=== PATIENT | male | born 1970 | race Caucasian/White ===

== ENCOUNTER 2020-04-14 00:42 | Outpatient (CLI) | payer BC, SELFPAY ==
[2020-04-14 21:25] LABS: SARS-CoV-2 RNA PCR Negative
== END 2020-04-14 00:43 | disposition home or self-care (01) ==
LOC: ANHCOVIDDT 00:42
PROVIDERS: PCP Family Medicine; Visit Provider Internal Medicine Gastroenterology
DX: Z01.812 Encounter for preprocedural laboratory examination (principal); Z20.828 Contact with and (suspected) exposure to other viral communicable diseases
CPT/HCPCS: 87635; C9803; U0003

== ENCOUNTER 2020-04-17 01:04 | Day surgery (SDC) | payer BC, SELFPAY ==
[2020-04-05 14:03] VITALS: BMI 25.4
[2020-04-17 10:08] VITALS: BP 149/89; PULSE 73; RESP 18; TEMP 36.9; O2SAT 100
[2020-04-17] MEDS: LACTATED RINGERS 1,000 ML 150 ML IV CONT (10:13)
--- NOTE | 2020-04-17 10:22 | PM.HPGS ---
History of Present Illness History of Present Illness Consent: Risks, benefits, and alternatives have been discussed and questions answered. Patient agrees to proceed with procedure. Chief complaint: neoplasm screening Narrative: Bry Miller is a 49 year old male here for first screening colonoscopy Review of Systems Constitutional: Constitutional: Denies headache(s) and Denies weakness Eyes: Eyes: Denies blurry vision ENT: Reports Normal hearing present, Denies headache(s) and Denies neck pain Cardiovascular: Cardiovascular: Denies chest pain and Denies dyspnea Respiratory: Respiratory: Denies dyspnea Gastrointestinal: Gastrointestinal: Reports no additional gastrointestinal complaints Genitourinary: Genitourinary: Denies dysuria Musculoskeletal: Musculoskeletal: Denies neck pain Integumentary/Breasts: Skin/Breast: Denies dry skin Neurologic: Reports Normal hearing present, Denies headache(s) and Denies weakness Psychiatric: Psychiatric: Denies anxiety Endocrine: Endocrine: Denies change in body appearance Hematologic/Lymphatic: Hematologic/Lymphatic: Denies easy bleeding Allergic/Immunologic: Allergic/Immunologic: Denies urticaria PMF Past Medical History Medical History (Updated 03/23/20 @ 09:41 by Morris Mckinney MD) Alopecia Anxiety Blood in stool BMI 26.0-26.9,adult Colon cancer screening Non-healing skin lesion Rectal bleeding Thrombocytopenia Family History Family History (System 03/23/20 @ 09:21 by Quita Girard) Mother Patient's mother is , Onset Age: 68 Father Malignant neoplasm of prostate, Onset Age: 68 Social History Social History (System 03/23/20 @ 09:21 by Quita Girard) Smoking status: Never smoker Alcohol intake: never Substance use: never Substance use type: does not use Living arrangements: with family Spiritual care concerns: No Meds Home Medications and Allergies Home Medications Medication Instructions Recorded Confirmed Type fluticasone propionate 50 1 spray NASAL BID #19.8 ml 06/23/19 04/05/20 Rx mcg/actuation nasal spray,suspension valacyclovir [Valtrex] See Rx Instructions PO DAILY PRN 04/05/20 04/05/20 History Allergies Allergy/AdvReac Type Severity Reaction Status Date / Time No Known Drug Allergies Allergy Unknown Unknown Verified 04/17/20 10:07 Vital Signs Vital Signs - 24 hr 04/17/20 10:08 Temperature 98.5 F Pulse Rate 73 Respiratory Rate 18 Blood Pressure 149/89 H Pulse Oximetry 100 Exam Const: General: comfortable and no acute distress HENMT: General nose exam: Normal nares present Eyes: General: appearance normal, both eyes and all related structures Neck: Neck: no JVD Resp: Auscultation: clear to auscultation bilaterally Cardio: Rate: regular rate Rhythm: regular rhythm GI: Inspection: non-distended GI Palp: Yes Soft to palpation Skin: General skin exam: normal color Neuro: General: gait normal Speech: normal speech Extrem: General: normal to inspection Psych: Mental Status: mental status grossly normal Assessment and Plan Assessment and plan (1) Colon cancer screening: Code(s): Z12.11 - Encounter for screening for malignant neoplasm of colon Status: Acute Assessment and Plan: will proceed with colonoscopy
--- NOTE | 2020-04-17 10:22 | WPDANESEPPF ---
Anes - Initial Pre Proc Eval Procedure: Operation Date: 04/17/20 11:30 Proposed Procedures p Screening Colonoscopy - Slava Neal MD Date/Time: 04/17/20 10:22 Surgeon: Slava Neal MD Pre Op Diagnosis: neoplasm screening Patient Data Age: 49 Gender: M Height: 6 ft Weight: 84.7 kg Last Vital Signs Temp 98.5 F 04/17/20 10:08 Pulse 73 04/17/20 10:08 Resp 18 04/17/20 10:08 BP 149/89 H 04/17/20 10:08 Pulse Ox 100 04/17/20 10:08 Allergies Allergy/AdvReac Type Severity Reaction Status Date / Time No Known Drug Allergies Allergy Unknown Unknown Verified 04/17/20 10:07 Home Medications Medication Instructions Recorded Confirmed Type fluticasone propionate 50 1 spray NASAL BID #19.8 ml 06/23/19 04/05/20 Rx mcg/actuation nasal spray,suspension valacyclovir [Valtrex] See Rx Instructions PO DAILY PRN 04/05/20 04/05/20 History Patient hx anesthesia problems: none Family hx anesthesia problems: none PMFSH Past Medical History Medical History (Updated 03/23/20 @ 09:41 by Morris Mckinney MD) Alopecia Anxiety Blood in stool BMI 26.0-26.9,adult Colon cancer screening Non-healing skin lesion Rectal bleeding Thrombocytopenia Family History Family History (System 03/23/20 @ 09:21 by Quita Girard) Mother Patient's mother is , Onset Age: 68 Father Malignant neoplasm of prostate, Onset Age: 68 Social History Social History (System 03/23/20 @ 09:21 by Quita Girard) Smoking status: Never smoker Alcohol intake: never Substance use: never Substance use type: does not use Living arrangements: with family Spiritual care concerns: No Anes - Eval Final PreProcedure Day of Procedure 04/17/20 10:22 Patient weight: normal Heart: regular rate and rhythm Lungs: clear to auscultation Airway: Mallampati scale class II Neurological: alert and oriented Last oral intake: >/= 8 hours ASA classification: II Emergent: no Anesthetic plan: proceed Anesthesia type and monitoring: general GIVS and standard monitoring Informed Consent: The patient's anesthetic plan and its attendant risks and benefits were discussed with the patient/family/POA. Questions were solicited and answers provided to the satisfaction of the patient/family/POA.
[2020-04-17 10:55] VITALS: BP 116/77; PULSE 58; RESP 20; O2SAT 100
[2020-04-17 11:05] VITALS: BP 126/85; PULSE 57; RESP 21; O2SAT 99
[2020-04-17 11:15] VITALS: BP 119/80; PULSE 55; RESP 17; O2SAT 98
== END 2020-04-17 11:26 | disposition home or self-care (01) ==
PROVIDERS: PCP Family Medicine; Visit Provider Internal Medicine Gastroenterology
PROC: 0DJD8ZZ Inspection of Lower Intestinal Tract, Via Natural or Artificial Opening Endoscopic (ICD-10-PCS; CPT 45378; principal; 2020-04-17 11:30)
DX: Z12.11 Encounter for screening for malignant neoplasm of colon (principal); D12.3 Benign neoplasm of transverse colon; K64.8 Other hemorrhoids
CPT/HCPCS: 45385; 88305; J2001; J2704; J7120